=== PATIENT | male | born 1970 | race Caucasian/White ===

== ENCOUNTER 2017-03-24 18:22 | Emergency (ER) | payer BC, OTHER ==
[~2017-03-24] VITALS: Ht 185.4 cm; Wt 99.3 kg
[~2017-03-24 18:22] MED LIST: VICODIN 5-3001 EACH PO
[2017-03-24 22:02] LABS: EOSINOPHIL (%) 1.5 % (0-5); EOSINOPHIL COUNT 0.1 K/uL (0-0.3); HEMATOCRIT 40.4 % (38.0-50.0); IMMATURE GRANULOCYTE (%) 0.2 % (0.0-0.7); INSTRUMENT ABS NEUTROPHIL CT 2.5 K/uL; LYMPHOCYTE COUNT 2.4 K/uL (1.0-2.8); MCH 32.7 PG (29.0-34.0); MCHC 35.9 G/DL (30.0-36.0); MEAN PLAT.VOLUME 9.4 uM^3 (9.0-12.4); MONOCYTE (%) 6.5 % (3-12); MONOCYTE COUNT 0.4 K/uL (0-0.8); NEUTROPHIL (%) 47.3 % (45-76); NEUTROPHIL COUNT 2.5 K/uL (1.8-6.4); PLATELET COUNT 181 K/uL (156-360); RBC DIS.WIDTH-CV 12.5 % (11.8-14.6); RED BLOOD COUNT 4.44 M/uL (4.00-5.50); WHITE BLOOD COUNT 5.4 K/uL (4.1-10.2)
[2017-03-24 22:15] LABS: CHLORIDE 106 mEq/L (99-109); POTASSIUM 3.7 mEq/L (3.7-5.4); SODIUM 140 mEq/L (136-147)
[2017-03-24 22:17] LABS: GLUCOSE 102 mg/dL (70-99)
[2017-03-24 22:19] LABS: ANION GAP 15 MEQ/L (2-14); TOTAL BILIRUBIN 0.4 mg/dL (0.0-1.0)
[2017-03-24 22:20] LABS: SERUM ETHYL ALCOHOL 165 mg/dL
[2017-03-24 22:21] LABS: ALKALINE PHOSPHATASE 79 IU/L (3-129)
[2017-03-24 22:22] LABS: UREA NITROGEN (BUN) 12 mg/dL (9-23)
[2017-03-24 22:24] LABS: SALICYLATE < 5.0 MG/DL (15-30)
[2017-03-24 22:25] VITALS: BP 124/82
[2017-03-24 22:25] LABS: LIPASE 33 U/L (1.0-51.0)
[2017-03-24 23:37] LABS: GFR ESTIMATE (CALCULATED) > 59 mL/min/; SAMPLE HEMOLYSIS CHECK 0; SAMPLE ICTERIC CHECK 0; SAMPLE LIPEMIA CHECK 1
== END 2017-03-24 22:26 | disposition home or self-care (01) ==
LOC: EME 18:22
PROVIDERS: Emergency Medicine
DX: F10.20 Alcohol dependence, uncomplicated (principal); Y90.6 Blood alcohol level of 120-199 mg/100 ml; F43.21 Adjustment disorder with depressed mood; Z63.4 Disappearance and death of family member; Z72.0 Tobacco use
CPT/HCPCS: 80053; 83690; 85025; 90839; 99281; 99284; G0480

== ENCOUNTER 2017-04-19 05:25 | Day surgery (SDC) | payer BC, OTHER ==
[~2017-04-19] VITALS: Ht 185.4 cm; Wt 93.1 kg
[~2017-04-19 05:25] MED LIST changes: +VITAMIN D5000 UNI1 PO
[2017-04-19 05:57] VITALS: BP 132/77
[2017-04-19 16:15] VITALS: BP 131/90
[2017-04-20 00:02] VITALS: BP 124/59
[2017-04-20 08:18] VITALS: BP 129/74
[2017-04-20] MEDS ORDERED: ASPIRIN EC325 MG PO (08:47)
[2017-04-20] MEDS ORDERED: ENDOCET 5-3251 EACH PO (08:49)
[2017-04-20 16:31] VITALS: BP 121/70
[2017-04-21 01:02] VITALS: BP 113/58
[2017-04-21 07:08] VITALS: BP 134/75
== END 2017-04-21 12:56 | disposition home or self-care (01) ==
LOC: SDC 05:25 → 2SOUTH 10:52 → 3EAST 10:52 → 2SOUTH 10:52 → 3EAST 15:23 → SDC 15:43 → 3EAST 04-21 12:56
PROC: 0SGM04Z Fusion of Right Metatarsal-Phalangeal Joint with Internal Fixation Device, Open Approach (ICD-10-PCS; principal; 2017-04-19)
DX: S93.324A Dislocation of tarsometatarsal joint of right foot, initial encounter (principal); M24.874 Other specific joint derangements of right foot, not elsewhere classified; M21.6X1 Other acquired deformities of right foot; F07.89 Other personality and behavioral disorders due to known physiological condition; M10.071 Idiopathic gout, right ankle and foot
CPT/HCPCS: 73630; 76000; 93005; C1713; G0378; J0330; J0690; J1100; J1170; J2250; J2270; J2405; J3010; J7120; S0020

== ENCOUNTER → 2017-10-05 | Outpatient (CLI) | payer BC, OTHER ==
[~2017-10-05] MED LIST changes: +ASPIRIN EC325 MG PO; +ENDOCET 5-3251 EACH PO
== END | disposition home or self-care (01) ==
LOC: PICC 09:11
DX: M86.8X7 Other osteomyelitis, ankle and foot (principal)
CPT/HCPCS: 76937

== ENCOUNTER 2018-06-22 11:34 | Inpatient (IN) | payer OTHER ==
[~2018-06-22] VITALS: Ht 185.4 cm; Wt 102.4 kg
[2018-06-22 12:15] LABS: HEMOGLOBIN 13.1 G/DL (12.5-16.6); MCH 33.1 PG (29.0-34.0); MCHC 36.4 G/DL (30.0-36.0); MCV 90.9 FL (86-99); PLATELET COUNT 94 K/uL (156-360); RBC DIS.WIDTH-SD 39.9 % (39-53); RED BLOOD COUNT 3.96 M/uL (4.00-5.50); WHITE BLOOD COUNT 2.3 K/uL (4.1-10.2)
[2018-06-22 12:29] LABS: ALBUMIN 3.3 g/dL (3.2-4.8); CHLORIDE 102 mEq/L (99-109)
[2018-06-22 12:30] LABS: POTASSIUM 3.7 mEq/L (3.7-5.4); SODIUM 138 mEq/L (136-147)
[2018-06-22 12:32] LABS: GLUCOSE 100 mg/dL (70-99); TOTAL PROTEIN 5.7 g/dL (6.4-8.3)
[2018-06-22 12:34] LABS: TOTAL BILIRUBIN 2.1 mg/dL (0.0-1.0)
[2018-06-22 12:35] LABS: ALKALINE PHOSPHATASE 120 IU/L (3-129); CREATININE 0.9 mg/dL (0.6-1.3); GFR ESTIMATE (CALCULATED) > 59 mL/min/ (58.99-99999)
[2018-06-22 12:37] LABS: UREA NITROGEN (BUN) 12 mg/dL (9-23)
[2018-06-22 12:39] LABS: LIPASE 36 U/L (1.0-51.0)
[2018-06-22 12:47] LABS: ALT (GPT) 1077 IU/L (3-49); AST (GOT) 2660 IU/L (2-34)
[2018-06-22 12:49] LABS: APPEARANCE CLEAR ((CLEAR)); BILIRUBIN NEGATIVE; BLOOD NEGATIVE; COLOR AMBER ((YELLOW)); GLUCOSE (STRIP) 150; KETONES NEGATIVE; LEUKOCYTES NEGATIVE; NITRITE NEGATIVE; PROTEIN (STRIP) 100; SPECIFIC GRAVITY 1.023 (1.000-1.030)
[2018-06-22 13:00] LABS: BACTERIA RARE /HPF; EPITHELIAL CELLS NONE SEEN /HPF; HYALINE CASTS 0-5 /LPF; MUCUS TRACE /LPF; UCUL ADDED? NO; WHITE BLOOD CELLS 0-5 /HPF (0-5)
[2018-06-22 13:10] LABS: BASOPHIL (%) 0.4 % (0-1); EOSINOPHIL (%) 0.4 % (0-5); IMMATURE GRANULOCYTE (%) 0.9 % (0.0-0.7); LYMPHOCYTE (%) 32.6 % (15-42); LYMPHOCYTE COUNT 0.8 K/uL (1.0-2.8); MONOCYTE (%) 7.7 % (3-12); MONOCYTE COUNT 0.2 K/uL (0-0.8); NEUTROPHIL COUNT 1.4 K/uL (1.8-6.4)
[2018-06-22 16:31] LABS: SALICYLATE < 5.0 MG/DL (15-30)
[2018-06-22 16:32] LABS: ACETAMINOPHEN (TYLENOL) < 10 mcg/mL (10-30)
[2018-06-22] MEDS ORDERED: LITE COAT ASPI325 M1 PO (16:35)
[2018-06-22] MEDS ORDERED: NAPROXEN500 MG PO (16:36)
[2018-06-22 18:52] LABS: SERUM ETHYL ALCOHOL < 10 mg/dL
[2018-06-22 20:23] VITALS: BP 155/83
[2018-06-22 20:46] LABS: MAGNESIUM 1.8 mg/dL (1.3-2.7)
[2018-06-22 22:25] LABS: C-REACTIVE PROTEIN 63.2 MG/L (0-10)
[2018-06-22 23:55] VITALS: BP 132/70
[2018-06-23 04:09] VITALS: BP 119/81
[2018-06-23 07:11] LABS: BENZODIAZEPINES, URINE SCREEN Negative (200 ng/mL)
[2018-06-23 07:14] LABS: HEMATOCRIT 36.9 % (38.0-50.0); MCH 32.5 PG (29.0-34.0); MCHC 35.2 G/DL (30.0-36.0); MCV 92.3 FL (86-99); PLATELET COUNT 78 K/uL (156-360); RBC DIS.WIDTH-CV 12.3 % (11.8-14.6); RBC DIS.WIDTH-SD 41.7 % (39-53)
[2018-06-23 07:15] LABS: INTER. NORMALIZED RATIO 1.4
[2018-06-23 07:18] LABS: PTT 31.3 SEC (25-37)
[2018-06-23 07:36] LABS: WHITE BLOOD COUNT 1.9 K/uL (4.1-10.2)
[2018-06-23 07:56] LABS: CHLORIDE 103 MEQ/L (99-109); CREATININE 0.9 MG/DL (0.6-1.3); GFR ESTIMATE (CALCULATED) > 59 mL/min/ (58.99-99999); GLUCOSE 115 mg/dL (70-99); POTASSIUM 3.5 MEQ/L (3.7-5.4); SODIUM 135 MEQ/L (136-147); TOTAL BILIRUBIN 4.1 MG/DL (0.0-1.0); TOTAL PROTEIN 4.9 G/DL (6.4-8.3); UREA NITROGEN (BUN) 9 mg/dL (9-23)
[2018-06-23 08:00] LABS: ALKALINE PHOSPHATASE 114 IU/L (3-129)
[2018-06-23 08:03] VITALS: BP 123/71
[2018-06-23 08:08] LABS: ALT (GPT) 1601 IU/L (3-49); AST (GOT) 4009 IU/L (2-34)
[2018-06-23 09:55] LABS: HEPATITIS B SURFACE ANTIGEN Nonreactive
[2018-06-23 09:56] LABS: ANTI-HEPATITIS A VIRUS (IGM) REACTIVE; HEPATITIS C ANTIBODY Nonreactive
[2018-06-23 09:57] LABS: ANTI-HEPATITIS B CORE (IGM) Nonreactive
[2018-06-23 11:32] VITALS: BP 147/86
[2018-06-23 16:02] VITALS: BP 139/74
[2018-06-23 20:00] VITALS: BP 132/79
[2018-06-23 23:55] VITALS: BP 136/66
[2018-06-24 05:41] LABS: INTER. NORMALIZED RATIO 1.8
[2018-06-24 05:43] LABS: HEMATOCRIT 34.8 % (38.0-50.0); HEMOGLOBIN 12.2 G/DL (12.5-16.6); MCH 31.9 PG (29.0-34.0); MCHC 35.1 G/DL (30.0-36.0); MCV 90.9 FL (86-99); PLATELET COUNT 101 K/uL (156-360); RBC DIS.WIDTH-CV 12.5 % (11.8-14.6); RBC DIS.WIDTH-SD 41.3 % (39-53); RED BLOOD COUNT 3.83 M/uL (4.00-5.50); WHITE BLOOD COUNT 2.1 K/uL (4.1-10.2)
[2018-06-24 05:44] LABS: PTT 42.8 SEC (25-37)
[2018-06-24 06:14] LABS: ALKALINE PHOSPHATASE 114 IU/L (3-129); CHLORIDE 102 MEQ/L (99-109); CREATININE 0.8 MG/DL (0.6-1.3); GFR ESTIMATE (CALCULATED) > 59 mL/min/ (58.99-99999); GLUCOSE 146 mg/dL (70-99); POTASSIUM 3.5 MEQ/L (3.7-5.4); SODIUM 134 MEQ/L (136-147); TOTAL PROTEIN 5.1 G/DL (6.4-8.3); UREA NITROGEN (BUN) 8 mg/dL (9-23)
[2018-06-24 06:20] LABS: ALT (GPT) 2646 IU/L (3-49); AST (GOT) 5752 IU/L (2-34); TOTAL BILIRUBIN 6.1 MG/DL (0.0-1.0)
[2018-06-24 06:48] LABS: BASOPHIL (%) 0.5 % (0-1); EOSINOPHIL (%) 0.9 % (0-5); IMMATURE GRANULOCYTE (%) 0.9 % (0.0-0.7); LYMPHOCYTE (%) 41.5 % (15-42); LYMPHOCYTE COUNT 0.9 K/uL (1.0-2.8); MONOCYTE (%) 9.9 % (3-12); MONOCYTE COUNT 0.2 K/uL (0-0.8); NEUTROPHIL (%) 46.3 % (45-76)
[2018-06-24 08:00] VITALS: BP 118/75
[2018-06-24 10:35] LABS: A/G RATIO 1.5 (1.1-1.8); ALBUMIN 2.9 G/DL (3.4-5.0); FOLIC ACID (FOLATE) > 22.0 NG/ML (5.0-22.0); GLOBULINS 1.9 G/DL (2.3-3.5); TOTAL PROTEIN 4.8 G/DL (6.4-8.2)
[2018-06-24 11:47] VITALS: BP 131/80
[2018-06-24 11:47] LABS: ANTI-HEPATITIS A VIRUS (IGM) REACTIVE
[2018-06-24 15:31] LABS: ALBUMIN 2.78 G/DL (3.6-4.9); ALPHA-1 GLOBULIN 0.34 G/DL (0.15-0.40); BETA-GLOBULIN 0.41 G/DL (0.65-1.15); GAMMA-GLOBULIN 0.97 G/DL (0.60-1.35)
[2018-06-24 15:51] VITALS: BP 121/65
[2018-06-24 15:59] VITALS: BP 120/63
[2018-06-24 19:42] VITALS: BP 131/71
[2018-06-25 04:17] VITALS: BP 105/61
[2018-06-25 06:39] LABS: HEMATOCRIT 33.7 % (38.0-50.0); HEMOGLOBIN 11.9 G/DL (12.5-16.6); MCH 32.8 PG (29.0-34.0); MCHC 35.3 G/DL (30.0-36.0); MCV 92.8 FL (86-99); NRBC (%) 1.7 /100 WBC (0-0); PLATELET COUNT 125 K/uL (156-360); RBC DIS.WIDTH-CV 12.8 % (11.8-14.6); RBC DIS.WIDTH-SD 43.8 % (39-53); RED BLOOD COUNT 3.63 M/uL (4.00-5.50); WHITE BLOOD COUNT 2.4 K/uL (4.1-10.2)
[2018-06-25 06:56] LABS: INTER. NORMALIZED RATIO 1.9
[2018-06-25 07:28] LABS: ALBUMIN 2.8 G/DL (3.2-4.8); ALKALINE PHOSPHATASE 116 IU/L (3-129); CHLORIDE 100 MEQ/L (99-109); GFR ESTIMATE (CALCULATED) > 59 mL/min/ (58.99-99999); SODIUM 134 MEQ/L (136-147); TOTAL PROTEIN 4.9 G/DL (6.4-8.3); UREA NITROGEN (BUN) 7 mg/dL (9-23)
[2018-06-25 07:33] LABS: ALT (GPT) 2408 IU/L (3-49); AST (GOT) 2787 IU/L (2-34); GLUCOSE 86 mg/dL (70-99); TOTAL BILIRUBIN 8.2 MG/DL (0.0-1.0)
[2018-06-25 07:58] VITALS: BP 107/65
[2018-06-25 15:33] VITALS: BP 117/62
[2018-06-25 20:06] VITALS: BP 113/68
[2018-06-26] VITALS (7 sets, daily range): BP systolic 104–125; BP diastolic 56–80
[2018-06-26 05:21] LABS: INTER. NORMALIZED RATIO 1.7
[2018-06-26 06:06] LABS: ALBUMIN 2.7 G/DL (3.2-4.8); ALKALINE PHOSPHATASE 110 IU/L (3-129); DIRECT BILIRUBIN 6.8 mg/dL (0.0-0.3); IRON 72 MCG/DL (35-150); TRANSFERRIN (TIBC) 137.2 mg/dL (215-380); TRANSFERRIN SATUR. 52 % (20-55)
[2018-06-26 06:10] LABS: TOTAL BILIRUBIN 10.2 MG/DL (0.0-1.0)
[2018-06-26 06:18] LABS: ALT (GPT) 2319 IU/L (3-49); AST (GOT) 1883 IU/L (2-34)
[2018-06-26 09:46] LABS: FERRITIN 6052 NG/ML (22-322)
[2018-06-27 05:57] LABS: INTER. NORMALIZED RATIO 1.4
[2018-06-27 06:35] LABS: ALBUMIN 2.6 G/DL (3.2-4.8); ALKALINE PHOSPHATASE 104 IU/L (3-129); DIRECT BILIRUBIN 7.7 mg/dL (0.0-0.3); TOTAL BILIRUBIN 11.8 MG/DL (0.0-1.0); TOTAL PROTEIN 5.1 G/DL (6.4-8.3)
[2018-06-27 06:41] LABS: ALT (GPT) 1745 IU/L (3-49); AST (GOT) 930 IU/L (2-34)
[2018-06-27 07:48] VITALS: BP 101/59
[2018-06-27 12:18] VITALS: BP 111/56
[2018-06-27 15:51] VITALS: BP 91/61
[2018-06-27 19:54] VITALS: BP 106/70
[2018-06-27 23:14] VITALS: BP 107/69
[2018-06-28 06:08] LABS: ALKALINE PHOSPHATASE 105 IU/L (3-129); AST (GOT) 493 IU/L (2-34); DIRECT BILIRUBIN 8.9 mg/dL (0.0-0.3); TOTAL BILIRUBIN 14.1 MG/DL (0.0-1.0); TOTAL PROTEIN 6.3 G/DL (6.4-8.3)
[2018-06-28 06:25] LABS: ALT (GPT) 1309 IU/L (3-49)
[2018-06-28 08:00] VITALS: BP 113/76
[2018-06-28 12:15] VITALS: BP 121/76
[2018-06-28 19:15] VITALS: BP 147/97
[2018-06-28 23:46] VITALS: BP 119/70
[2018-06-29 03:02] VITALS: BP 113/63
[2018-06-29 05:13] LABS: INTER. NORMALIZED RATIO 1.3
[2018-06-29 05:26] LABS: HEMATOCRIT 34.3 % (38.0-50.0); HEMOGLOBIN 11.5 G/DL (12.5-16.6); MCH 32.1 PG (29.0-34.0); MCHC 33.5 G/DL (30.0-36.0); MCV 95.8 FL (86-99); RBC DIS.WIDTH-CV 13.5 % (11.8-14.6); RBC DIS.WIDTH-SD 47.9 % (39-53); RED BLOOD COUNT 3.58 M/uL (4.00-5.50); WHITE BLOOD COUNT 2.8 K/uL (4.1-10.2)
[2018-06-29 05:35] LABS: PLATELET COUNT 188 K/uL (156-360)
[2018-06-29 06:12] LABS: ALBUMIN 2.8 G/DL (3.2-4.8); ALKALINE PHOSPHATASE 83 IU/L (3-129); ALT (GPT) 781 IU/L (3-49); DIRECT BILIRUBIN 8.6 mg/dL (0.0-0.3); TOTAL BILIRUBIN 13.6 MG/DL (0.0-1.0); TOTAL PROTEIN 5.8 G/DL (6.4-8.3)
[2018-06-29 06:19] LABS: AST (GOT) 254 IU/L (2-34)
[2018-06-29 07:45] VITALS: BP 103/65
[2018-06-29 11:34] VITALS: BP 107/63
[2018-06-29 14:15] LABS: ABS NEUTROPHIL COUNT 1.4; ATYPICAL LYMPHOCYTE 4.5 %; BAND NEUTROPHILS 1.8 % (0-8.0); BASOPHILS 0.9 %; EOSINOPHIL ABS CT 0; EOSINOPHILS 0.9 % (0-5.0); METAMYELOCYTES 0.9 %; MYELOCYTES 0.9 %; SEG.NEUTROPHILS 49.1 % (46.0-76.0)
[2018-06-29 15:22] VITALS: BP 130/70
[2018-06-29 19:29] VITALS: BP 119/54
[2018-06-29 23:35] VITALS: BP 112/63
[2018-06-30 07:33] LABS: HEMATOCRIT 32.8 % (38.0-50.0); HEMOGLOBIN 11.3 G/DL (12.5-16.6); MCH 32.8 PG (29.0-34.0); MCHC 34.5 G/DL (30.0-36.0); MCV 95.3 FL (86-99); PLATELET COUNT 177 K/uL (156-360); RBC DIS.WIDTH-CV 13.8 % (11.8-14.6); RBC DIS.WIDTH-SD 48.4 % (39-53); RED BLOOD COUNT 3.44 M/uL (4.00-5.50); WHITE BLOOD COUNT 2.7 K/uL (4.1-10.2)
[2018-06-30 07:47] VITALS: BP 112/81
[2018-06-30 07:48] LABS: INTER. NORMALIZED RATIO 1.3
[2018-06-30 08:02] LABS: ALBUMIN 2.7 G/DL (3.2-4.8); ALKALINE PHOSPHATASE 85 IU/L (3-129); ALT (GPT) 437 IU/L (3-49); AST (GOT) 143 IU/L (2-34); CHLORIDE 98 MEQ/L (99-109); CREATININE 0.9 MG/DL (0.6-1.3); DIRECT BILIRUBIN 8.3 mg/dL (0.0-0.3); GFR ESTIMATE (CALCULATED) > 59 mL/min/ (58.99-99999); GLUCOSE 120 mg/dL (70-99); MAGNESIUM 2.2 mg/dl (1.3-2.7); POTASSIUM 3.9 MEQ/L (3.7-5.4); SODIUM 131 MEQ/L (136-147); TOTAL BILIRUBIN 12.5 MG/DL (0.0-1.0); TOTAL PROTEIN 5.8 G/DL (6.4-8.3); UREA NITROGEN (BUN) 9 mg/dL (9-23)
[2018-06-30 08:35] LABS: ABS NEUTROPHIL COUNT 1.3; ANISOCYTOSIS NONE SEEN; ATYPICAL LYMPHOCYTE 6.8 %; BAND NEUTROPHILS 7.7 % (0-8.0); EOSINOPHIL ABS CT 0; LYMPHOCYTES 21.4 % (15.0-45.0); PLAT.SUFFICIENCY ADEQUATE
[2018-06-30 08:51] LABS: MONOCYTES 23.1 % (0-9.0)
[2018-06-30 11:18] VITALS: BP 104/60
[2018-06-30] MEDS ORDERED: METOCLOPRAMIDE10 MG PO (12:07)
[2018-06-30] MEDS ORDERED: PANTOPRAZOLE SO40 MG PO (12:07)
[2018-06-30] MEDS ORDERED: FOLIC ACID1 MG PO (12:07)
[2018-06-30] MEDS ORDERED: Thiamine,Vitamin B1 PO (12:08)
== END 2018-06-30 14:25 | disposition home or self-care (01) | DRG 442 ==
LOC: EME 11:34 → EDOF 18:52 → ENRESERV 18:54 → 4SOUTH 20:03
PROVIDERS: Emergency Medicine; Hospitalist; Physician Assistant; Specialist
DX: B15.9 Hepatitis A without hepatic coma (principal); D61.818 Other pancytopenia; B27.00 Gammaherpesviral mononucleosis without complication; N28.1 Cyst of kidney, acquired; K70.10 Alcoholic hepatitis without ascites; T51.0X1A Toxic effect of ethanol, accidental (unintentional), initial encounter; D73.1 Hypersplenism; F10.20 Alcohol dependence, uncomplicated; D69.59 Other secondary thrombocytopenia; K56.1 Intussusception; D68.9 Coagulation defect, unspecified; E87.6 Hypokalemia; R73.9 Hyperglycemia, unspecified; N20.0 Calculus of kidney; I10 Essential (primary) hypertension; E66.9 Obesity, unspecified; Z68.29 Body mass index [BMI] 29.0-29.9, adult; F12.10 Cannabis abuse, uncomplicated; Z72.0 Tobacco use; Z82.49 Family history of ischemic heart disease and other diseases of the circulatory system
CPT/HCPCS: 71046; 74177; 74181; 80048; 80053; 80074; 80076; 80306 90; 81003; 81256 90; 82390; 82607; 82728; 82746; 82948; 83540; 83605; 83690; 83735; 84165; 84466; 85025; 85027; 85610; 85651; 85730; 86038; 86140; 86664; 86665; 86709; 87040; 93005; 99281; 99285; C9113; G0378; G0480; J1644; J1885; J2060; J2270; J2405; J2543; J3475; J3480; J7030; J7050